=== PATIENT | female | born 1945 | race Caucasian/White ===

== ENCOUNTER 2022-04-22 12:13 | Emergency (ER) | payer BC ==
[~2022-04-22] VITALS: Ht 157.5 cm; Wt 57.6 kg
[2022-04-22 12:30] VITALS: BP_SYST 152
--- NOTE | 2022-04-22 12:30 | NUR ---
Patient triaged and placed in waiting room. VSS and patient appears in no acute distress at this time. Accompanied by FAMILY, awaiting available bed, and MD notified of need for MSE.
--- NOTE | 2022-04-22 14:00 | NUR ---
Patient to ER bed triage to gown for evaluation. Side rails up.
--- NOTE | 2022-04-22 14:18 | NUR ---
ER at bedside examining patient.
[2022-04-22 15:15] LABS: EOSINOPHILS # (AUTO) 0.2 K/uL (0.0-0.4); MEAN CORPUSCULAR HEMOGLOBIN 16 pg (27-31); MONOCYTES # (AUTO) 0.9 K/uL (0.0-1.0); RED CELL DISTRIBUTION WIDTH 19.5 % (9.0-15.0)
[2022-04-22 15:24] LABS: ANION GAP 11 (5-15); CALCIUM 8.9 mg/dL (8.4-11.0); CHLORIDE 101 mmol/L (98-107); GLUCOSE 133 mg/dL (70-99); UREA NITROGEN, BLOOD 13 mg/dL (8-21)
[2022-04-22 15:25] LABS: HEMATOCRIT 26.2 % (36-48); HEMOGLOBIN 7.7 g/dL (12.0-16.0); MEAN CORPUSCULAR HGB CONC 30 % (32-36); MEAN CORPUSCULAR VOLUME 54 fL (79.0-98.0); PLATELET COUNT (AUTO) 589 K/uL (130-430); RED BLOOD CELL COUNT(AUTO) 4.81 MIL/uL (4.2-6.2); WHITE BLOOD COUNT (AUTO) 7.9 K/uL (4.8-10.8)
[2022-04-22 15:26] LABS: BASOPHILS % (AUTO) 0.6 % (0.0-2.0); EOSINOPHILS % (AUTO) 2.7 % (0.0-4.0); LYMPHOCYTES # (AUTO) 2.2 K/uL (1.0-5.5); LYMPHOCYTES % (AUTO) 27.7 % (20.5-51.5); MONOCYTES % (AUTO) 11.1 % (1.7-9.3); NEUTROPHILS # (AUTO) 4.6 K/uL (1.8-7.7); NEUTROPHILS % (AUTO) 57.9 % (40.0-70.0)
--- NOTE | 2022-04-22 19:18 | NUR ---
Patient LEFT W/O written and verbal discharge instructions . Patient in stable condition. NO Rx of given. Patient educated on pain management and to follow up with PMD. Pain Scale 0. Opportunity for questions provided and answered. Medication side effect fact sheet provided.
== END 2022-04-22 19:18 | disposition home or self-care (01) ==
LOC: SED 12:13
DX: D50.9 Iron deficiency anemia, unspecified (principal); E11.9 Type 2 diabetes mellitus without complications; I10 Essential (primary) hypertension; R53.1 Weakness; R79.9 Abnormal finding of blood chemistry, unspecified; Z79.899 Other long term (current) drug therapy; Z20.822 Contact with and (suspected) exposure to COVID-19
CPT/HCPCS: 36415; 80048; 85025; 86886; 86900; 86901; 99283